=== PATIENT | female | born 1990 | race American Indian/Alaskan Native ===

== ENCOUNTER 2016-08-12 22:21 | Emergency (ER) | payer MEDICARE ==
[2016-08-12 22:21] VITALS: BMI 25.0
[2016-08-12 22:34] VITALS: BP 127/77; PULSE 61; RESP 18; TEMP 97.2; O2SAT 100
--- NOTE | 2016-08-12 23:23 | ED PDOC ---
HPI: Skin/Bite Injury Time Seen by Provider: 08/12/16 22:43 Chief Complaint (Nursing): Abnormal Skin Integrity Chief Complaint (Provider): Abscess History Per: Patient Additional Complaint(s): Pt c/o cyst on right jaw x 2 weeks. Went to PMD and was given antibiotics, no relief. Denies fever. Past Medical History Reviewed: Nursing Documentation, Vital Signs Vital Signs: Last Vital Signs Temp 97.2 F L 08/12/16 22:30 Pulse 61 08/12/16 22:30 Resp 18 08/12/16 22:30 BP 127/77 08/12/16 22:30 Pulse Ox 100 08/12/16 23:24 - Medical History PMH: No Chronic Diseases - Surgical History Surgical History: No Surg Hx, (x1) - Family History Family History: States: Unknown Family Hx - Home Medications Home Medications: Ambulatory Orders Medication Instructions Recorded No Known Home Med 08/14/16 - Allergies Allergies/Adverse Reactions: Allergies Allergy/AdvReac Type Severity Reaction Status Date / Time No Known Allergies Allergy Verified 03/19/16 18:30 Review of Systems ROS Statement: Except As Marked, All Systems Reviewed And Found Negative Skin: Positive for: Lesions Physical Exam - Reviewed Nursing Documentation Reviewed: Yes Vital Signs Reviewed: Yes - Physical Exam Appears: Positive for: Well, Non-toxic, No Acute Distress Head Exam: Positive for: ATRAUMATIC, NORMAL INSPECTION, NORMOCEPHALIC Skin: Positive for: Normal Color, Warm, DRY Eye Exam: Positive for: EOMI, Normal appearance, PERRL ENT: Positive for: Normal ENT Inspection Neck: Positive for: Normal, Painless ROM Cardiovascular/Chest: Positive for: Regular Rate, Rhythm Respiratory: Positive for: CNT, Normal Breath Sounds Gastrointestinal/Abdominal: Positive for: Normal Exam, Bowel Sounds, Soft Back: Positive for: Normal Inspection Extremity: Positive for: Normal ROM Neurologic/Psych: Positive for: Alert, Oriented Comments: tender, firm, non fluctuance ~ 3 cm mass noted to right mandibular area, no erythema - ECG O2 Sat by Pulse Oximetry: 100 Medical Decision Making Medical Decision Making: Warm compresses, use medications as directed Disposition - Clinical Impression Clinical Impression: Abscess - Patient ED Disposition Is Patient to be Admitted: No - Disposition Disposition: Routine/Home Disposition Time: 00:00 Condition: STABLE Instructions: Abscess (ED) Forms: [facility] ED School/Work Excuse
== END 2016-08-12 23:45 | disposition home or self-care (01) ==
LOC: H.ER 22:21
DX: L02.01 Cutaneous abscess of face (principal)

== ENCOUNTER 2016-12-02 10:34 | Emergency (ER) | payer MEDICARE ==
[2016-12-02 10:34] VITALS: BMI 25.0
[2016-12-02 10:56] VITALS: BP 117/68; PULSE 64; RESP 20; TEMP 97; O2SAT 98
--- NOTE | 2016-12-02 11:31 | ED PDOC ---
HPI: Chest Pain Time Seen by Provider: 12/02/16 10:59 Chief Complaint (Nursing): Chest Pain Chief Complaint (Provider): Breast pain History Per: Patient Additional Complaint(s): 26 yo female, no PMH, presents to ED with complaints of bilateral breast pain x 4 days, radiating to back. Pt has not been taking anything for pain thus far. Pt can not recall the exact last day of her LMP; however, reports she is due next week sometime. Pt reports the back pain is in the middle of her back. No UTI like complaints. Past Medical History Reviewed: Nursing Documentation, Vital Signs Vital Signs: Last Vital Signs Temp 97 F L 12/02/16 10:53 Pulse 64 12/02/16 10:53 Resp 20 12/02/16 10:53 BP 117/68 12/02/16 10:53 Pulse Ox 98 12/02/16 11:31 - Medical History PMH: No Chronic Diseases - Surgical History Surgical History: (x1) - Family History Family History: States: Unknown Family Hx - Living Arrangements Living Arrangements: With Family - Social History Current smoker - smoking cessation education provided: No Alcohol: None Drugs: Denies - Immunization History Hx Tetanus Toxoid Vaccination: No Hx Influenza Vaccination: No Hx Pneumococcal Vaccination: No - Home Medications Home Medications: Ambulatory Orders Medication Instructions Recorded No Known Home Med 08/14/16 - Allergies Allergies/Adverse Reactions: Allergies Allergy/AdvReac Type Severity Reaction Status Date / Time No Known Allergies Allergy Verified 03/19/16 18:30 Review of Systems ROS Statement: Except As Marked, All Systems Reviewed And Found Negative Genitourinary Female: Positive for: Other (breast pain) Musculoskeletal: Positive for: Back Pain Physical Exam - Reviewed Nursing Documentation Reviewed: Yes Vital Signs Reviewed: Yes - Physical Exam Appears: Positive for: Well, Non-toxic, No Acute Distress Head Exam: Positive for: ATRAUMATIC, NORMAL INSPECTION, NORMOCEPHALIC Skin: Positive for: Normal Color, Warm, DRY Eye Exam: Positive for: EOMI, Normal appearance, PERRL ENT: Positive for: Normal ENT Inspection Neck: Positive for: Normal, Painless ROM Cardiovascular/Chest: Positive for: Regular Rate, Rhythm Respiratory: Positive for: CNT, Normal Breath Sounds Gastrointestinal/Abdominal: Positive for: Normal Exam, Bowel Sounds, Soft Pelvic Exam: Positive for: Other (breast exam negative, no masses, no skin dimpling. no nipple discharge) Back: Positive for: Normal Inspection. Negative for: L CVA Tenderness, R CVA Tenderness Extremity: Positive for: Normal ROM Neurologic/Psych: Positive for: Alert, Oriented - ECG O2 Sat by Pulse Oximetry: 98 Medical Decision Making Medical Decision Making: perg (-) Dip (+) blood and leuks. UA sent Pt made aware of results and advised to do repeat preg test in 1 week Toradol ordered; however, Pt preferred oral Pill. Medicated with Motrin PO. UA pending; however, Pt reports that she needs to leave and move her car. Unwilling to wait for results of US or papers. left ED, witnessed by specification writer. Disposition - Clinical Impression Clinical Impression: Breast pain, Back pain - Patient ED Disposition Is Patient to be Admitted: No - Disposition Disposition: Eloped Disposition Time: 13:46 Condition: STABLE Forms: [facility] (Swedish)
[2016-12-02 13:49] LABS: URINE CLARITY Clear (Clear); URINE COLOR YELLOW (YELLOW); URINE GLUCOSE (UA) NEGATIVE (Normal)
[2016-12-02 13:50] LABS: URINE BILIRUBIN NEGATIVE (NEGATIVE); URINE BLOOD NEGATIVE (NEGATIVE); URINE PROTEIN NEGATIVE (NEGATIVE); URINE UROBILINOGEN 0.2 mg/dL (0.2-1.0)
[2016-12-02 13:51] LABS: SQUAMOUS EPITHIAL 12 /hpf (0-5); URINE LEUKOCYTE ESTERASE TRACE Leu/uL (Negative); URINE NITRATE NEGATIVE (NEGATIVE)
[2016-12-02 13:52] LABS: URINE BACTERIA FEW (<OCC)
== END 2016-12-02 13:56 | disposition left against medical advice (07) ==
LOC: H.ER 10:34
DX: N64.4 Mastodynia (principal); M54.9 Dorsalgia, unspecified

== ENCOUNTER 2017-12-01 11:06 | Emergency (ER) | payer SELFPAY ==
[2017-12-01 11:06] VITALS: BMI 25.0
[2017-12-01 11:45] VITALS: BP 121/77; PULSE 59; RESP 18; TEMP 98.6; O2SAT 99
--- NOTE | 2017-12-01 12:18 | ED PDOC ---
HPI: Skin/Bite Injury Time Seen by Provider: 12/01/17 12:13 Chief Complaint (Nursing): Abnormal Skin Integrity Chief Complaint (Provider): Abnormal Skin Integrity History Per: Patient History/Exam Limitations: no limitations Onset/Duration Of Symptoms: Days (x4) Current Symptoms Are (Timing): Still Present Additional Complaint(s): 27 y/o female presents to the ED complaining of an abscess located on the left side of her forehead, onset 4 days ago. Patient states she has been applying cold compresses with no relief. Denies fever, chills and headache. PMD:None Provided Past Medical History Reviewed: Historical Data, Nursing Documentation, Vital Signs Vital Signs: Last Vital Signs Temp 98.6 F 12/01/17 11:41 Pulse 59 L 12/01/17 11:41 Resp 18 12/01/17 11:41 BP 121/77 12/01/17 11:41 Pulse Ox 99 12/01/17 12:22 - Medical History PMH: No Chronic Diseases - Surgical History Surgical History: (x1) - Family History Family History: States: Unknown Family Hx - Immunization History Hx Tetanus Toxoid Vaccination: No Hx Influenza Vaccination: No Hx Pneumococcal Vaccination: No - Home Medications Home Medications: Ambulatory Orders Medication Instructions Recorded Cephalexin [Keflex] 500 mg PO TID #21 capsule 12/01/17 Ibuprofen [Motrin] 600 mg PO Q8 PRN #21 tab 12/01/17 Sulfamethoxazole/Trimethoprim 1 each PO BID #14 tablet 12/01/17 [Bactrim Ds Tablet] - Allergies Allergies/Adverse Reactions: Allergies Allergy/AdvReac Type Severity Reaction Status Date / Time No Known Allergies Allergy Verified 03/19/16 18:30 Review of Systems ROS Statement: Except As Marked, All Systems Reviewed And Found Negative Constitutional: Negative for: Fever, Chills Skin: Positive for: Other (Abscess located to thr left side of her forehead) Neurological: Negative for: Headache Physical Exam - Reviewed Nursing Documentation Reviewed: Yes Vital Signs Reviewed: Yes - Physical Exam Appears: Positive for: Non-toxic, No Acute Distress Head Exam: Positive for: ATRAUMATIC Skin: Negative for: Normal Color (2 cm region of swelling and induration located to the left side of her forehead. ) Eye Exam: Positive for: Normal appearance Neck: Positive for: Normal, Painless ROM Cardiovascular/Chest: Negative for: Bradycardia, Tachycardia Respiratory: Negative for: Accessory Muscle Use, Respiratory Distress Extremity: Positive for: Normal ROM. Negative for: Deformity Neurologic/Psych: Positive for: Alert, Oriented (x3). Negative for: Motor/ Sensory Deficits - ECG O2 Sat by Pulse Oximetry: 99 (RA) Pulse Ox Interpretation: Normal Disposition - Clinical Impression Clinical Impression: Abscess - Patient ED Disposition Is Patient to be Admitted: No - Disposition Disposition: Routine/Home Disposition Time: 12:22 Condition: FAIR Additional Instructions: RETURN IN 2-3 DAYS FOR ABSCESS EVALUATION. Prescriptions: Cephalexin [Keflex] 500 mg PO TID #21 capsule Ibuprofen [Motrin] 600 mg PO Q8 PRN #21 tab PRN Reason: Pain, Moderate (4-7) Sulfamethoxazole/Trimethoprim [Bactrim Ds Tablet] 1 each PO BID #14 tablet Instructions: Skin Abscess Forms: [facility] ED School/Work Excuse
== END 2017-12-01 12:39 | disposition home or self-care (01) ==
LOC: H.ER 11:06
DX: L02.01 Cutaneous abscess of face (principal)

== ENCOUNTER 2017-12-02 19:05 | Emergency (ER) | payer SELFPAY ==
[2017-12-02 19:06] VITALS: BMI 25.0
[2017-12-02 19:15] VITALS: BP 117/78; PULSE 66; RESP 16; TEMP 98.5; O2SAT 100
[2017-12-02] MEDS ORDERED: Lidocaine 2% w Epi 1:100,000 Inj IJ STA (19:54)
[2017-12-02] MEDS ORDERED: Lidocaine 2% w Epi 1:100,000 Inj IJ ONE (20:00)
[2017-12-02] MEDS ORDERED: Oxycodone/Acetaminophen 5/325 mg Tab ONE (20:29)
[2017-12-02] MEDS ORDERED: Oxycodone/Acetaminophen 5/325 mg Tab PO STA (20:30)
--- NOTE | 2017-12-02 20:56 | ED PDOC ---
HPI: General Adult Time Seen by Provider: 12/02/17 19:36 Chief Complaint (Nursing): Abnormal Skin Integrity Chief Complaint (Provider): Abnormal Skin Integrity History Per: Patient History/Exam Limitations: no limitations Additional Complaint(s): Patient is a 27 y/o female who was seen here a few days ago for a bump on her left forehead. Patient was given bactrim and Keflex and states she immediately filled the prescription and has been taking them as instructed. However, today the bump has become larger and more painful with associated swelling around upper eyelid. She denies fever, pain to orbit, change in vision, headache, dizziness, as well as any swelling or pain elsewhere. Patient is otherwise well and comfortable. Past Medical History Reviewed: Historical Data, Nursing Documentation, Vital Signs Vital Signs: Last Vital Signs Temp 98.5 F 12/02/17 19:11 Pulse 66 12/02/17 19:11 Resp 16 12/02/17 19:11 BP 117/78 12/02/17 19:11 Pulse Ox 100 12/04/17 14:45 - Medical History PMH: No Chronic Diseases - Surgical History Surgical History: (x1) - Family History Family History: States: Unknown Family Hx - Immunization History Hx Tetanus Toxoid Vaccination: No Hx Influenza Vaccination: No Hx Pneumococcal Vaccination: No - Home Medications Home Medications: Ambulatory Orders Medication Instructions Recorded Cephalexin [Keflex] 500 mg PO TID #21 capsule 12/01/17 Ibuprofen [Motrin] 600 mg PO Q8 PRN #21 tab 12/01/17 Sulfamethoxazole/Trimethoprim 1 each PO BID #14 tablet 12/01/17 [Bactrim Ds Tablet] Oxycodone HCl/Acetaminophen 1 each PO Q6 #4 tablet 12/02/17 [Percocet 10-325 mg Tablet] - Allergies Allergies/Adverse Reactions: Allergies Allergy/AdvReac Type Severity Reaction Status Date / Time No Known Allergies Allergy Verified 12/02/17 19:11 Review of Systems ROS Statement: Except As Marked, All Systems Reviewed And Found Negative Constitutional: Negative for: Fever Eyes: Positive for: Eyelid Inflammation (mild swelling to upper eyelid without warmth, echymosis, or erythema.). Negative for: Pain (eyes or orbit), Vision Change Skin: Positive for: Other (bump to left forehead with pain and enlarging) Neurological: Negative for: Headache, Dizziness Physical Exam - Reviewed Nursing Documentation Reviewed: Yes Vital Signs Reviewed: Yes - Physical Exam Appears: Positive for: Non-toxic, No Acute Distress Head Exam: Positive for: ATRAUMATIC, NORMOCEPHALIC (3cm x 1cm fluctuant, erythematous abcess to left forehead without drainage or bleeding. ) Skin: Positive for: Normal Color, Warm, Dry. Negative for: Rash Eye Exam: Positive for: EOMI, Periorbital swelling (upper) Neck: Positive for: Normal, Painless ROM, Supple Cardiovascular/Chest: Positive for: Regular Rate, Rhythm. Negative for: Murmur Respiratory: Positive for: Normal Breath Sounds. Negative for: Respiratory Distress Gastrointestinal/Abdominal: Positive for: Normal Exam, Soft. Negative for: Tenderness Extremity: Positive for: Normal ROM. Negative for: Pedal Edema, Deformity Neurologic/Psych: Positive for: Alert, Oriented. Negative for: Motor/Sensory Deficits - ECG O2 Sat by Pulse Oximetry: 100 (RA) Pulse Ox Interpretation: Normal Medical Decision Making Medical Decision Making: Time: Impression: --IND lidocaine with epi --pain controlled with percocet Abscess was incised and drained with no reported pain. Minimal bleeding. Pt pain free following procedure. pt to follow up in clinic as referred and will continue to antibiotics as previously prescribed. Pt given 4 percocet for pain control following the procedure. Pt advised to return if swelling increases or redness spread or if she develops bleeding, drainage, or fever. ----- Scribe Attestation: Documented by Kei Rodas, acting as a scribe for Maritza Ramirez MD. Provider Scribe Attestation: All medical record entries made by the Scribe were at my direction and personally dictated by me. I have reviewed the chart and agree that the record accurately reflects my personal performance of the history, physical exam, medical decision making, and the department course for this patient. I have also personally directed, reviewed, and agree with the discharge instructions and disposition. Procedures - Time-Out Type of Procedure: incision and drainage Site of Procedure: left forehead Correct Patient (with visual ID + MR# on ID Band): Yes Correct Procedure: Yes Correct Site Marked: Yes X-Ray Marked: NA - Incision and Drainage Site: left forehead Blade Size: 11 I & D Procedure: betadine prep, sterile drapes applied, sterile dressing applied Progress: Lidocain with epinephrine used (4cc) with complete pain control. Approximatly 4 cc of pus drained with loculation broken up. Minimal bleeding. Would dressed with sterile gauze. No complications and pt tolerated procedure. Disposition - Clinical Impression Clinical Impression: Abscess - Disposition Referrals: [facility] [Outside] [facility] [Outside] Disposition Time: 21:30 Condition: IMPROVED Additional Instructions: Take Tylenol or Motrin for mild pain. Take Percocet only for severe pain. Do not drive or operate machinery if taking Percocet as it can make you drowsy. Follow up with the outpatient clinic as stated on referral. Return to the emergency department if you develop bleeding, swelling, large amount of pus, or other new symptoms. Prescriptions: Oxycodone HCl/Acetaminophen [Percocet 10-325 mg Tablet] 1 each PO Q6 #4 tablet Instructions: Skin Abscess, Abscess Incision and Drainage (DC) Forms: [facility] ([place])
== END 2017-12-02 21:33 | disposition home or self-care (01) ==
LOC: H.ER 19:05
DX: L02.01 Cutaneous abscess of face (principal)

== ENCOUNTER 2018-04-07 15:07 | Emergency (ER) | payer MEDICARE ==
[2018-04-07 15:07] VITALS: BMI 25.0
[2018-04-07 15:43] VITALS: RESP 18; TEMP 98.7
[2018-04-07] MEDS ORDERED: Naproxen 500 MG TAB PO STA (15:55)
--- NOTE | 2018-04-07 16:24 | ED PDOC ---
HPI: Back Time Seen by Provider: 04/07/18 15:41 Chief Complaint (Nursing): Back Pain Chief Complaint (Provider): Back Pain History Per: Patient History/Exam Limitations: no limitations Onset/Duration Of Symptoms: Days (x3) Current Symptoms Are (Timing): Still Present Quality Of Discomfort: "Pain" Additional Complaint(s): 27 year old female presents with 3 days of worsening lower back pain. Patient denies fever, urinary or fecal incontinence, urinary or fecal retention, weakness or numbness to legs. She states she has never had similar symptoms before. Patient has mild lower abdominal pain with urination but denies nausea, vomiting, blood in urine or any other complaints. PMD: none provided LMP: 03/13/18 Past Medical History Reviewed: Historical Data, Nursing Documentation, Vital Signs Vital Signs: Last Vital Signs Temp 98.7 F 04/07/18 15:43 Pulse 66 04/07/18 15:43 Resp 18 04/07/18 15:43 BP 118/76 04/07/18 15:43 Pulse Ox 98 04/07/18 15:43 - Medical History PMH: No Chronic Diseases - Surgical History Surgical History: (x1) - Family History Family History: States: Unknown Family Hx - Immunization History Hx Tetanus Toxoid Vaccination: No Hx Influenza Vaccination: No Hx Pneumococcal Vaccination: No - Home Medications Home Medications: Ambulatory Orders Medication Instructions Recorded Cephalexin [Keflex] 500 mg PO TID #21 capsule 12/01/17 Ibuprofen [Motrin] 600 mg PO Q8 PRN #21 tab 12/01/17 Sulfamethoxazole/Trimethoprim 1 each PO BID #14 tablet 12/01/17 [Bactrim Ds Tablet] Oxycodone HCl/Acetaminophen 1 each PO Q6 #4 tablet 12/02/17 [Percocet 10-325 mg Tablet] Cyclobenzaprine [Cyclobenzaprine 10 mg PO BID #6 tab 04/07/18 HCl] Nitrofurantoin Macrocrystals 100 mg PO BID #10 cap 04/07/18 [Macrobid] RX: Naproxen 500 mg PO Q12 #20 tab 04/07/18 - Allergies Allergies/Adverse Reactions: Allergies Allergy/AdvReac Type Severity Reaction Status Date / Time No Known Allergies Allergy Verified 04/07/18 15:46 Review of Systems ROS Statement: Except As Marked, All Systems Reviewed And Found Negative Constitutional: Negative for: Fever Gastrointestinal: Positive for: Abdominal Pain (lower abdominal pain with urination) Genitourinary Female: Negative for: Incontinence, Hematuria Musculoskeletal: Positive for: Back Pain (low) Neurological: Negative for: Weakness (to legs), Numbness (to legs) Physical Exam - Reviewed Nursing Documentation Reviewed: Yes Vital Signs Reviewed: Yes - Physical Exam Appears: Positive for: Non-toxic, No Acute Distress Head Exam: Positive for: ATRAUMATIC, NORMOCEPHALIC Skin: Positive for: Normal Color, Warm, Dry Eye Exam: Positive for: Normal appearance, EOMI, PERRL Neck: Positive for: Normal Cardiovascular/Chest: Positive for: Regular Rate, Rhythm. Negative for: Murmur Respiratory: Positive for: Normal Breath Sounds. Negative for: Respiratory Distress Gastrointestinal/Abdominal: Positive for: Normal Exam, Soft. Negative for: Tenderness Back: Positive for: Other (No tenderness to spine or bilateral sacroiliac joint, tenderness along the superior posterior iliac crest. ) Extremity: Positive for: Normal ROM (upper and lower). Negative for: Pedal Edema, Deformity Neurologic/Psych: Positive for: Alert, Oriented (x3) - ECG O2 Sat by Pulse Oximetry: 98 (RA) Pulse Ox Interpretation: Normal Medical Decision Making Medical Decision Making: Time: 1554 Workup for musculoskeletal pain versus UTI rule out Initial Plan: --UA --Flexeril --Naproxen if not --No indication for imaging as there has been no change in activity or trauma. --Reassess patient Time: 1707 --Patient with improvement in symptoms with naproxen and flexeril. UA shows small leukocyte esterase. Patient to be discharged with flexeril, macrobid and naproxen. Scribe Attestation: Documented by Swati Milner, acting as a scribe for Maritza Ramirez MD Provider Scribe Attestation: All medical record entries made by the Scribe were at my direction and personally dictated by me. I have reviewed the chart and agree that the record accurately reflects my personal performance of the history, physical exam, medical decision making, and the department course for this patient. I have also personally directed, reviewed, and agree with the discharge instructions and disposition. Disposition - Clinical Impression Clinical Impression: Acute back pain, UTI (urinary tract infection), Low back pain - Disposition Disposition: Routine/Home Disposition Time: 17:07 Condition: IMPROVED Additional Instructions: Take medications as prescribed. Do not drive (or perform dangerous activity) if you have taken Flexeril as it will make you drowsy. Follow up with primary medical doctor in one week if symptoms not improved. Prescriptions: Cyclobenzaprine [Cyclobenzaprine HCl] 10 mg PO BID #6 tab RX: Naproxen 500 mg PO Q12 #20 tab Nitrofurantoin Macrocrystals [Macrobid] 100 mg PO BID #10 cap Instructions: Low Back Pain (DC), Urinary Tract Infection, Adult (DC) Forms: [facility] ([place]enian) Print Language: [place]
[2018-04-07 16:37] LABS: SQUAMOUS EPITHIAL 7 /hpf (0-5); URINE BACTERIA RARE (<OCC); URINE BILIRUBIN NEGATIVE (NEGATIVE); URINE BLOOD NEGATIVE (NEGATIVE); URINE CLARITY CLOUDY (Clear); URINE COLOR YELLOW (YELLOW); URINE GLUCOSE (UA) NEG (NEGATIVE); URINE LEUKOCYTE ESTERASE TRACE Leu/uL (Negative); URINE PROTEIN NEGATIVE (NEGATIVE)
[2018-04-07 17:18] VITALS: BP 128/72; PULSE 81
[2018-04-07 20:57] VITALS: O2SAT 98
== END 2018-04-07 17:19 | disposition home or self-care (01) ==
LOC: H.ER 15:07
DX: N39.0 Urinary tract infection, site not specified (principal); M54.5 Low back pain

== ENCOUNTER 2018-06-01 22:28 | Emergency (ER) | payer MEDICAID, MEDICARE ==
[2018-06-01 22:29] VITALS: BMI 25.0
[2018-06-01 22:43] VITALS: O2SAT 100
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
[2018-06-02 00:10] LABS: BASO # 0.1 K/uL (0.0-0.2); EOS # 0.1 K/uL (0.0-0.7); EOS % 1.1 % (0.0-4.0); HEMOGLOBIN 12.3 g/dL (12.0-16.0); LYMPH # 2.7 K/uL (1.0-4.3); LYMPH % 33.6 % (20.0-40.0); MEAN CELL VOLUME 89.8 fl (81.0-99.0); MEAN CORPUSCULAR HEMOGLOBIN 30.3 pg (27.0-31.0); MEAN CORPUSCULAR HGB CONC 33.8 g/dL (33.0-37.0); MONO # 0.6 K/uL (0.0-0.8); MONO % 7.7 % (0.0-10.0); NEUT # 4.5 K/uL (1.8-7.0); NEUT % 56.6 % (50.0-75.0); RBC 4.06 Mil/uL (3.80-5.20); RED CELL DISTRIBUTION WIDTH 13.4 % (11.5-14.5); WHITE BLOOD COUNT 7.9 K/uL (4.8-10.8)
[2018-06-02 00:18] LABS: ALB/GLOB RATIO 1.2 (1.0-2.1); ALBUMIN 4.3 g/dL (3.5-5.0); ALT/SGPT 18 U/L (9-52); AST/SGOT 15 U/L (14-36); BLOOD UREA NITROGEN 9 mg/dl (7-17); GFR NON-AFRICAN AMERICAN > 60
[2018-06-02 00:27] LABS: SQUAMOUS EPITHIAL 4 /hpf (0-5); URINE BACTERIA RARE (<OCC); URINE BILIRUBIN NEGATIVE (NEGATIVE); URINE BLOOD LARGE (NEGATIVE); URINE CLARITY SLIGHTY-CLOUDY (Clear); URINE COLOR YELLOW (YELLOW); URINE GLUCOSE (UA) NEG (NEGATIVE); URINE LEUKOCYTE ESTERASE NEG Leu/uL (Negative); URINE PROTEIN NEGATIVE (NEGATIVE)
[2018-06-02 02:55] VITALS: BP 125/73; PULSE 80; RESP 15; TEMP 98.3
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
--- NOTE | 2018-06-02 13:19 | US ---
Date of service: 06/02/2018 HISTORY: Abdominal pain and vaginal bleeding x 3 days LMP 05/19/2018. Irregular menses. Cycle approximately every 15 days/2 per month. COMPARISON: 10/15/2015 TECHNIQUE: Transvaginal only. Real -time technique with 2D, duplex and color Doppler FINDINGS: UTERUS: Measures 3.9 x 5.7 x 8.5 cm. Normal in size and appearance. No fibroid or other mass lesion seen. ENDOMETRIUM: Measures 3.6 mm in diameter. No ultrasound findings to suggest gestational sac, fluid, debris, mass or polyp or other pathologic process within the endometrium. CERVIX: No cervical abnormality identified. Closed cervix 3.2 cm. RIGHT OVARY: Measures 2 x 4.2 x 2.7 cm. No solid mass. Normal flow. Multiple subcentimeter follicles. Adjacent small volume fluid LEFT OVARY: Measures 2.6 x 3.4 x 5.6 cm. No solid mass. Normal flow. Multiple subcentimeter follicles. FREE FLUID: Trace free fluid noted. OTHER FINDINGS: None. IMPRESSION: Unremarkable uterus and endometrial echo complex. Bilateral subcentimeter follicles. Trace fluid identified adjacent to the right adnexa. Concordant findings (preliminary report) provided by [facility].
== END 2018-06-02 02:55 | disposition home or self-care (01) ==
LOC: H.ER 22:28
DX: N93.9 Abnormal uterine and vaginal bleeding, unspecified (principal); S20.211A Contusion of right front wall of thorax, initial encounter; Y92.89 Other specified places as the place of occurrence of the external cause
CPT/HCPCS: 71101; 76830; 80053; 81003; 81025; 85025; 87086; 96374; 99284; J1885